=== PATIENT | female | born 1990 | race Two or more races ===

== ENCOUNTER 2018-05-01 22:43 | Emergency (ER) | payer OTHER ==
[~2018-05-01] VITALS: Ht 170.2 cm; Wt 74.8 kg
[2018-05-02] MEDS ORDERED: INTESTINEX680 M1 PO (02:05)
[2018-05-02] MEDS ORDERED: CIPRO500 MG PO (02:05)
[2018-05-02] MEDS ORDERED: CELEBREX100 MG PO (02:23)
[2018-05-02] MEDS ORDERED: ULTRACET PO (02:23)
[2018-05-02] MEDS ORDERED: SKELAXIN800 MG PO (02:23)
== END 2018-05-02 02:53 | disposition home or self-care (01) ==
LOC: ER 22:43
DX: S91.121A Laceration with foreign body of right great toe without damage to nail, initial encounter (principal); S90.01XA Contusion of right ankle, initial encounter; S80.01XA Contusion of right knee, initial encounter; W18.39XA Other fall on same level, initial encounter; Y93.01 Activity, walking, marching and hiking; Y92.488 Other paved roadways as the place of occurrence of the external cause; Y99.8 Other external cause status